=== PATIENT | female | born 1930 | race Native Hawaiian/Other Pacific Islander ===

== ENCOUNTER 2019-11-22 23:41 | Emergency (ER) | payer OTHER ==
[~2019-11-22] VITALS: Ht 165.1 cm; Wt 47.2 kg
[2019-11-22 23:41] VITALS: BP 188/61; TEMP 99.1
[2019-11-23 00:45] LABS: PLATELET COUNT 551 K/uL (152-353)
[2019-11-23 00:52] LABS: POTASSIUM 4.6 mmol/L (3.6-5.2)
[2019-11-23] MEDS ORDERED: BUSPIRONE10 MG PO (08:13)
[2019-11-23] MEDS ORDERED: CARV6.25 PO (08:15)
[2019-11-23] MEDS ORDERED: [UNRECOGNIZED DRUG - OTHER] PO (08:17)
[2019-11-23] MEDS ORDERED: SM IBUPROFEN100 MG PO (08:18)
[2019-11-23] MEDS ORDERED: ONDANSETRON4 M2 PO (08:18)
[2019-11-23] MEDS ORDERED: TRAMADOL HYDROC50 MG PO ×2 (08:19→08:21)
[2019-11-23] MEDS ORDERED: PROAIR HFA INH (08:21)
[2019-11-23] MEDS ORDERED: ALPR0.2566 PO (08:22)
[2019-11-23] MEDS ORDERED: HYDRALAZINE HY100 MG PO (08:23)
[2019-11-23] MEDS ORDERED: DONEPEZIL HYDRO10 M1 PO (08:23)
[2019-11-23] MEDS ORDERED: REMERON SOLTAB15 MG PO (08:24)
[2019-11-23] MEDS ORDERED: PRAVACHOL20 MG PO (08:25)
[2019-11-23] MEDS ORDERED: ASPIRIN DR81 MG PO (08:26)
[2019-11-23] MEDS ORDERED: CALCIUM 600+D31 TAB PO (08:27)
[2019-11-23] MEDS ORDERED: DULO60CA2 PO (08:27)
[2019-11-23] MEDS ORDERED: KLOR-CON SPRIN10 MEQ PO (08:29)
== END 2019-11-23 01:25 | disposition other institution (70) ==
LOC: ED 23:41
PROVIDERS: Family Medicine
DX: F01.51 Vascular dementia, unspecified severity, with behavioral disturbance (principal); F22 Delusional disorders; Z11.59 Encounter for screening for other viral diseases; Z04.6 Encounter for general psychiatric examination, requested by authority
CPT/HCPCS: 36415; 80053; 81000; 85027; 87635; 93005; 99285; U0003